=== PATIENT | male | born 1995 | race Caucasian/White ===

== ENCOUNTER 2020-01-30 13:56 | Emergency (ER) | payer SELFPAY ==
[~2020-01-30] VITALS: Ht 177.8 cm; Wt 56.8 kg
--- NOTE | 2020-01-30 14:22 | PHYS DOC ---
Past History Past Medical History: No Pertinent History Past Surgical History: No Surgical History Alcohol Use: None Drug Use: None General Adult EDM: Chief Complaint: LOWER EXT PAIN HPI: HPI: Patient is a 24-year-old male who presents to ER today for evaluation of a wound on his left knee. He had chronic left knee pain, has been evaluated by his doctor with MRI her left knee about 6 months ago, he is currently on pain medication. Patient said about 2 months ago he started noted a lump on the anterior part of his left knee on the left side. The lump was about the size of a golf ball. It was nontender initially, however for the last week it became more tender at he palpated it. He noticed the skin surface become more painful and red, this morning when he woke up he noticed some yellow discharge coming out from the lump. Patient denies any fever, denies any recent injury. Review of Systems: Review of Systems: Constitutional: Denies fever or chills Eyes: Denies change in visual acuity HENT: Denies nasal congestion or sore throat Respiratory: Denies cough or shortness of breath Cardiovascular: Denies chest pain or edema GI: Denies abdominal pain, nausea, vomiting, bloody stools or diarrhea : Denies dysuria Musculoskeletal: Denies back pain or joint pain Integument: Painful lesion on anterior part of left knee. Neurologic: Denies headache, focal weakness or sensory changes Endocrine: Denies polyuria or polydipsia Lymphatic: Denies swollen glands Psychiatric: Denies depression or anxiety Heart Score: Risk Factors: Risk Factors: DM, Current or recent (<one month) smoker, HTN, HLP, family history of CAD, obesity. Risk Scores: Score 0 - 3: 2.5% MACE over next 6 weeks - Discharge Home Score 4 - 6: 20.3% MACE over next 6 weeks - Admit for Clinical Observation Score 7 - 10: 72.7% MACE over next 6 weeks - Early Invasive Strategies Allergies: Allergies: Allergies Coded Allergies Type Severity Reaction Last Updated Verified No Known Drug Allergies 01/30/20 No Physical Exam: PE: Constitutional: Well developed, well nourished, no acute distress, non-toxic appearance. [] HENT: Normocephalic, atraumatic, bilateral external ears normal, oropharynx moist, no oral exudates, nose normal. [] Eyes: PERRLA, EOMI, conjunctiva normal, no discharge. [] Neck: Normal range of motion, no tenderness, supple, no stridor. [] Cardiovascular:Heart rate regular rhythm, no murmur [] Lungs & Thorax: Bilateral breath sounds clear to auscultation [] Abdomen: Bowel sounds normal, soft, no tenderness, no masses, no pulsatile masses. [] Skin: Warm, dry. There is golf ball size infected lump on anterior part of left knee that is actively draining yellow fluid. Back: No tenderness, no CVA tenderness. [] Extremities: No tenderness, no cyanosis, no clubbing, ROM intact, no edema. [] Neurologic: Alert and oriented X 3, normal motor function, normal sensory function, no focal deficits noted. [] Psychologic: Affect normal, judgement normal, mood normal. [] EKG: EKG: [] Radiology/Procedures: Radiology/Procedures: [] Course & Med Decision Making: Course & Med Decision Making Pertinent Labs and Imaging studies reviewed. (See chart for details) THE ABSCESS ON LEFT ANTERIOR KNEE SKIN WAS EXPRESSED EASILY THROUGH THE SMALL OPENING THAT WAS THERE ALREADY. PURULENT MATERIAL WAS EXPRESSED. The abscess localized to the dermis of the anterior part of left knee. Left knee joint is stable, with full range of motion. No left knee swelling. Patient appeared to have a benign lipoma that he developed over several months period. Overtimes, it became infected and now bursted open spontaneously. The infected material was expressed easily out. Patient will be put on keflex and bactrim DS to treat the infection. He will need to follow up with his family doctor next week. Gladys Disclaimer: Gladys Disclaimer: This electronic medical record was generated, in whole or in part, using a voice recognition dictation system. Departure Departure: Impression: Primary Impression: Abscess of skin of left knee Disposition: 01 HOME, SELF-CARE Condition: STABLE Referrals: PCP,TONYA (PCP) follow up with your doctor in 2 days for reevaluation Patient Instructions: Abscess Additional Instructions: Thank you for visiting our Emergency Department. We appreciate you trusting us with your care. If any additional problems come up don't hesitate to return to visit us. Please follow up with your primary care provider so they can plan additional care if needed and know about the problem that you had. If symptoms worsen come back to the Emergency Department. Any concerning symptoms that start such as chest pain, shortness of air, weakness or numbness on one side of the body, running high fevers or any other concerning symptoms return to the ER. Scripts Cephalexin (KEFLEX) 500 Mg Capsule 1 CAP PO QID for abscess for 10 Days, #40 CAP 0 Refills Prov: GENE PINA DO 01/30/20 Sulfamethoxazole/Trimethoprim (BACTRIM DS TABLET) 1 Each Tablet 1 TAB PO BID for abscess for 10 Days, #20 TAB 0 Refills Prov: GENE PINA DO 01/30/20 GENE PINA DO Jan 30, 2020 14:22
[2020-01-30] MEDS ORDERED: SULF1TAB24 PO (15:12)
[2020-01-30] MEDS ORDERED: CEPH-264 PO (15:12)
[2020-01-30 15:15] VITALS: BP 113/74
== END 2020-01-30 15:15 | disposition home or self-care (01) ==
LOC: ER 13:56
DX: L02.416 Cutaneous abscess of left lower limb (principal)
CPT/HCPCS: 99283

== ENCOUNTER 2020-06-08 14:29 | Emergency (ER) | payer OTHER ==
[~2020-06-08] VITALS: Ht 180.3 cm; Wt 61.4 kg
[~2020-06-08 14:29] MED LIST: CEPH-264 PO; SULF1TAB24 PO
[2020-06-08 14:40] VITALS: BP 154/95
[2020-06-08] MEDS ORDERED: PRED-220 PO (15:11)
--- NOTE | 2020-06-08 15:11 | PHYS DOC ---
Past History Past Medical History: Anxiety Additional Past Medical Histor: chronic back pain Past Surgical History: Other Additional Past Surgical Histo: I&D left knee Alcohol Use: Occasionally Drug Use: None General Adult EDM: Chief Complaint: UPPER EXTREMITY PAIN HPI: HPI: 25-year-old male presents with right upper extremity pain at the wrist. Patient was going to do some framing work many picked up the framing and he had significant pain in the dorsal side of his wrist. 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 It is a deep cramping pain. Patient came here hoping to get something to make the pain go away for a couple of days so he can work on this project. He denies trauma. He is unsure why it started hurting. He has not had previous wrist injuries. Review of Systems: Review of Systems: Constitutional: Denies fever or chills Eyes: Denies change in visual acuity HENT: Denies nasal congestion or sore throat Respiratory: Denies cough or shortness of breath Cardiovascular: Denies chest pain or edema GI: Denies abdominal pain, nausea, vomiting, bloody stools or diarrhea : Denies dysuria Musculoskeletal: Right wrist pain Integument: Denies rash Neurologic: Denies headache, focal weakness or sensory changes Endocrine: Denies polyuria or polydipsia Lymphatic: Denies swollen glands Psychiatric: Denies depression or anxiety Heart Score: Risk Factors: Risk Factors: DM, Current or recent (<one month) smoker, HTN, HLP, family hi story of CAD, obesity. Risk Scores: Score 0 - 3: 2.5% MACE over next 6 weeks - Discharge Home Score 4 - 6: 20.3% MACE over next 6 weeks - Admit for Clinical Observation Score 7 - 10: 72.7% MACE over next 6 weeks - Early Invasive Strategies Allergies: Allergies: Allergies Coded Allergies Type Severity Reaction Last Updated Verified No Known Drug Allergies 01/30/20 No Physical Exam: PE: Constitutional: Well developed, well nourished, no acute distress, non-toxic appearance. [] HENT: Normocephalic, atraumatic, bilateral external ears normal, oropharynx moist, no oral exudates, nose normal. [] Eyes: PERRLA, EOMI, conjunctiva normal, no discharge. [] Neck: Normal range of motion, no tenderness, supple, no stridor. [] Cardiovascular: Heart rate regular rhythm, no murmur [] Lungs & Thorax: Bilateral breath sounds clear to auscultation [] Abdomen: Bowel sounds normal, soft, no tenderness, no masses, no pulsatile masses. [] Skin: Warm, dry, no erythema, no rash. [] Back: No tenderness, no CVA tenderness. [] Extremities: Tenderness of the right wrist, dorsal side; pain with extension of the wrist. No ecchymosis or obvious deformity. [] Neurologic: Alert and oriented X 3, normal motor function, normal sensory function, no focal deficits noted. [] Psychologic: Affect normal, judgement normal, mood normal. [] Current Patient Data: Vital Signs: Vital Signs Date Time Temp Pulse Resp B/P (MAP) Pulse Ox O2 Delivery O2 Flow Rate FiO2 06/08/20 14:40 98.1 83 16 154/95 (114) 99 Room Air EKG: EKG: [] Radiology/Procedures: Radiology/Procedures: [] Course & Med Decision Making: Course & Med Decision Making Pertinent Labs and Imaging studies reviewed. (See chart for details) I explained to the patient that there was no magic shot that would make it feel better for 2 days. It only happens in the movies. I will give him Toradol IM and 2 mg of morphine IM. The patient is already on high-dose narcotic pain medication orally for some other injury. He is concerned about taking too many of his pills and running out. I will discharge him with 3 days of prednisone 50 mg daily. He is stable for discharge at this time. [] Dragon Disclaimer: Dragon Disclaimer: This electronic medical record was generated, in whole or in part, using a voice recognition dictation system. Departure Departure: Impression: Primary Impression: Right wrist pain Disposition: HOME/RESIDENCE PRIOR TO ADM Condition: STABLE Referrals: PCP,NO (PCP) Patient Instructions: Wrist Pain, Itfc-io-Erty Scripts Prednisone (PREDNISONE) 10 Mg Tablet 50 MG PO DAILY for wrist pain for 3 Days, #15 TAB Prov: ZE GUSMAN DO 06/08/20 Justification of Admission: Justification of Admission: Justification of Admission Dx: N/A ZE GUSMAN DO Jun 08, 2020 15:11
[2020-06-08] MEDS ORDERED: KETOROLAC 60 MG/2 ML VIAL. IM ONE (15:15)
[2020-06-08] MEDS ORDERED: MORPHINE SULFATE 2 MG/ML DISP.SYRIN. IM ONE (15:15)
== END 2020-06-08 15:20 | disposition home or self-care (01) ==
LOC: ER 14:29
DX: M25.531 Pain in right wrist (principal); M79.601 Pain in right arm; G89.29 Other chronic pain; F41.9 Anxiety disorder, unspecified
CPT/HCPCS: 96372; 99284; J1885; J2270

== ENCOUNTER 2022-02-21 19:48 | Emergency (ER) | payer SELFPAY ==
[~2022-02-21] VITALS: Ht 180.3 cm; Wt 80.9 kg
[~2022-02-21 19:48] MED LIST changes: +PRED-220 PO
--- NOTE | 2022-02-21 20:08 | PHYS DOC ---
Past History Past Medical History: No Pertinent History Additional Past Medical Histor: CHRONIC PAIN Past Surgical History: Other Smoking: Cigarettes Alcohol Use: Occasionally Drug Use: Opiates General Adult EDM: Chief Complaint: OVERDOSE HPI: HPI: 26-year-old male presents via EMS after overdose. The patient took a street narcotic pill. It could have had fentanyl in it. He was at a job site when he took the medication. That is all he remembers. EMS states that they gave him 1 mg of Narcan intranasally and he woke up. He is frustrated about there being "a lot of shit in these pills that is not on the news". He has no other medical complaints. Denies fever or chills. Review of Systems: Review of Systems: Constitutional: Denies fever or chills Eyes: Denies change in visual acuity HENT: Denies nasal congestion or sore throat Respiratory: Denies cough or shortness of breath Cardiovascular: Denies chest pain or edema GI: Denies abdominal pain, nausea, vomiting, bloody stools or diarrhea : Denies dysuria Musculoskeletal: Denies back pain or joint pain Integument: Denies rash Neurologic: Denies headache, focal weakness or sensory changes Endocrine: Denies polyuria or polydipsia Lymphatic: Denies swollen glands Psychiatric: Denies depression or anxiety Allergies: Allergies: Allergies Coded Allergies Type Severity Reaction Last Updated Verified hydrocodone Allergy Unknown 07/07/20 Yes Physical Exam: PE: Constitutional: Well developed, well nourished, no acute distress, intoxicated appearance. [] HENT: Normocephalic, atraumatic, bilateral external ears normal, oropharynx moist, no oral exudates, nose normal. [] Eyes: PERRLA, EOMI, conjunctiva normal, no discharge. [] Neck: Normal range of motion, no tenderness, supple, no stridor. [] Cardiovascular: Heart rate 117, regular rhythm, no murmur [] Lungs & Thorax: Bilateral breath sounds clear to auscultation [] Abdomen: Bowel sounds normal, soft, no tenderness, no masses, no pulsatile masses. [] Skin: Warm, dry, no erythema, no rash. [] Back: No tenderness, no CVA tenderness. [] Extremities: No tenderness, no cyanosis, no clubbing, ROM intact, no edema. [] Neurologic: Alert and oriented X 3, normal motor function, normal sensory function, no focal deficits noted. [] Psychologic: Affect jittery, judgement normal, mood frustrated, anxious. [] Current Patient Data: Vital Signs: Vital Signs Date Time Temp Pulse Resp B/P (MAP) Pulse Ox O2 Delivery O2 Flow Rate FiO2 02/21/22 19:52 98.7 131 29 128/62 (84) 96 Room Air EKG: EKG: [] Radiology/Procedures: Radiology/Procedures: [] Heart Score: C/O Chest Pain: N/A Risk Factors: Risk Factors: DM, Current or recent (<one month) smoker, HTN, HLP, family history of CAD, obesity. Risk Scores: Score 0 - 3: 2.5% MACE over next 6 weeks - Discharge Home Score 4 - 6: 20.3% MACE over next 6 weeks - Admit for Clinical Observation Score 7 - 10: 72.7% MACE over next 6 weeks - Early Invasive Strategies Course & Med Decision Making: Course & Med Decision Making Pertinent Labs and Imaging studies reviewed. (See chart for details) The patient's labs are unremarkable. He has been unwilling to give us urine. He is clearly intoxicated with some type of drug. There is likely a combination. We had to give him Zyprexa as well as multiple doses of Ativan for his agitation. He has finally settled down and going to sleep. We will continue to monitor him for the next several hours. The patient does not meet any admission criteria. He is stable for discharge at this time. [] Dragon Disclaimer: Gladys Disclaimer: This electronic medical record was generated, in whole or in part, using a voice recognition dictation system. Departure Departure: Impression: Primary Impression: Accidental drug overdose Disposition: HOME / SELF CARE / HOMELESS Condition: IMPROVED Referrals: PCPTONYA (PCP) Patient Instructions: Alcohol and Drug Addiction, Finding Treatment, Drug Abuse, FAQs ZE GUSMAN DO February 21, 2022 20:08
[2022-02-21] MEDS ORDERED: NALOXONE 2 MG/2 ML DISP.SYRIN. IV ONE (20:15)
[2022-02-21] MEDS ORDERED: IV NORMAL SALINE 1,000ML 1,000 ML IV ONE (20:15)
[2022-02-21] MEDS ORDERED: NALOXONE 0.4 MG/ML VIAL. IV ONE (20:15)
[2022-02-21 21:14] LABS: BASO # 0.1 x10^3/uL (0.0-0.2); BASO % 1 % (0-3); EOS # 0.4 x10^3/uL (0.0-0.7); EOS % 5 % (0-3); HEMOGLOBIN 12.9 g/dL (13.0-17.5); LYMPH # 1.7 x10^3/uL (1.0-4.8); LYMPH % 23 % (24-48); MEAN CORPUSCULAR HEMOGLOBIN 32 pg (25-35); MEAN CORPUSCULAR HGB CONC 34 g/dL (31-37); MEAN CORPUSCULAR VOLUME 94 fL (79-100); MONO # 0.7 x10^3/uL (0.0-1.1); MONO % 9 % (0-9); NEUT # 4.5 x10^3uL (1.8-7.7); NEUT % 62 % (31-73); PLATELET COUNT 242 x10^3/uL (140-400); RED BLOOD COUNT 4.03 x10^6/uL (4.30-5.70); RED CELL DISTRIBUTION WIDTH 13.6 % (11.5-14.5); WHITE BLOOD COUNT 7.3 x10^3/uL (4.0-11.0)
[2022-02-21 21:21] LABS: CALCIUM 8.2 mg/dL (8.5-10.1); GFR 89.6; POTASSIUM 3.3 mmol/L (3.5-5.1)
[2022-02-21 21:28] LABS: ALBUMIN 3.7 g/dL (3.4-5.0); ALBUMIN/GLOBULIN RATIO 1.2 (1.0-1.7); TOTAL BILIRUBIN 0.6 mg/dL (0.2-1.0); TOTAL PROTEIN 6.7 g/dL (6.4-8.2)
[2022-02-21] MEDS ORDERED: OLANZapine IM 10 MG VIAL. IM ONE (21:45)
[2022-02-22 00:34] VITALS: BP 140/94
== END 2022-02-22 02:53 | disposition home or self-care (01) ==
LOC: MERGE 19:48 → ER 19:48
DX: T40.601A Poisoning by unspecified narcotics, accidental (unintentional), initial encounter (principal); F17.210 Nicotine dependence, cigarettes, uncomplicated; Z88.5 Allergy status to narcotic agent; Y92.89 Other specified places as the place of occurrence of the external cause
CPT/HCPCS: 36415; 80053; 85025; 96361; 96372; 96374; 96375; 96376; 99284; J2060; J2310; J3490; J7030